=== PATIENT | female | born 1985 | race Caucasian/White ===

== ENCOUNTER 2016-12-11 08:33 | Emergency (ER) | payer SELFPAY ==
[~2016-12-11 08:33] MED LIST: BACTROBAN22 GM TOP; CEFDINIR300 M1 PO; CELEXA PO; CIPRO PO; CIPRO250 MG PO; CLEOCIN HCL300 M1 PO; CLEOCIN PO; DEPO-PROVER150 MG/M1 IM; DEPO-PROVER150 MG/ML INJ; DICLOFENAC PO; E-MYCIN250 MG PO; ERY-TAB500 MG PO; ERYC250 MG PO; ERYTHROMYC3.5 GM OPT OD; ERYTHROMYCIN B500 MG PO; FAMOTIDINE PO; FIORICET W/CODE1 CAP PO; FLAGYL PO; FLEXERIL; FLEXERIL10 M1 PO; HYDROCODON-ACE1 EAC7 PO; HYDROCODONE-APA1 T57 PO; IBUPROFEN PO; IBUPROFEN600 MG PO; IBUPROFEN800 MG PO; ILOTYCIN1 G1 OU; KETOPROFEN PO; LORTAB 10-5001 EACH PO; LORTAB 2.5/5001 TAB PO; LORTAB 5/500 TA1 TA1 PO; MACROBID 100 M100 MG PO; MACROBID100 MG DOB; MACRODANTIN PO; MOBIC PO; NAPROSYN500 MG PO; NEURONTIN PO; NO MEDICATIONS; NORCO 5/325 TAB1 TAB PO; PEPCID AC20 M2 PO; PERCOCET5/325 PO; PERCOCET7.5 PO; PHENERGAN PO; PHENERGAN25 M1 DOB; PHENERGAN25 M1 PO; PHENERGAN25 MG PO; PRENATAL1 TA1 PO; PRILOSEC20 MG PO; PROPRANOLOL; PROTONIX PO; PYRIDIUM PO; PYRIDIUM100 MG PO; ROBITUSSIN A-C-S1 ML DOB; ROXICODONE5 MG DOB; STERAPRED5 MG/DOSE1 PO; TIGECYCLINE IV; TYLENOL #3 PO; ULTRAM PO; VIBRAMYCIN100 M1 PO; VICODIN 5/1 TAB 5/50 PO; VICODIN 5/500 T1 TAB PO; VICODIN PO; VISTARIL PO; XYLOCAINE20 ML 2% V PO; ZANTAC300 MG PO; ZITHROMAX1 G/PKT PO; ZOFRAN PO
== END 2016-12-11 09:47 | disposition home or self-care (01) ==
LOC: SED 08:33
DX: L02.413 Cutaneous abscess of right upper limb (principal); F17.210 Nicotine dependence, cigarettes, uncomplicated; Z88.2 Allergy status to sulfonamides; Z88.5 Allergy status to narcotic agent; Z88.8 Allergy status to other drugs, medicaments and biological substances
CPT/HCPCS: 96372; 99283